=== PATIENT | female | born 1945 | race Caucasian/White ===

== ENCOUNTER 2024-04-17 14:00 | Outpatient (AMB) | payer MEDICARE, BC, SELFPAY ==
--- NOTE | 2024-04-17 14:34 | ORTHONT_ITS ---
Vital signs 04/17/24 14:44 Height 1.73 m Height Method Measured Weight 80.087 kg Weight Measurement Method Standing Scale BMI 26.8 BP 130/80 Blood Pressure Source Automatic Cuff Blood Pressure Location Right Upper Arm Position Sitting Respiration 18 Pulse 72 Pulse Source Monitor Temp 97.7 F Temp Source Temporal Artery Scan Pulse Oximetry (%) 97 Oxygen Delivery Method Room Air Med/Allergies Allergies & Medications Allergies No Known Drug Allergies Allergy (Verified 04/17/24 14:46) Medication Reconciliation amlodipine 5 mg-valsartan 160 mg-hydrochlorothiazide 12.5 mg tablet 1 tab PO QDAY 04/17/24 [History Confirmed 04/17/24] aspirin 81 mg tablet 81 mg PO QDAY 04/17/24 [History Confirmed 04/17/24] atorvastatin 10 mg tablet 10 mg PO QDAY 04/17/24 [History Confirmed 04/17/24] cetirizine 10 mg tablet (Zyrtec) 10 mg PO QDAY PRN 04/17/24 [History Confirmed 04/17/24] fluticasone propionate 50 mcg/actuation nasal spray,suspension (Flonase Allergy Relief) 1 spray intranasal QDAY 04/17/24 [History Confirmed 04/17/24] magnesium citrate 100 mg capsule 100 mg PO QDAY 04/17/24 [History Confirmed 04/17/24] multivitamin 1 tab PO QDAY 04/17/24 [History Confirmed 04/17/24] Exam Exam Patient is in no acute distress and is cooperative with the examination today. Breathing is nonlabored. In no respiratory distress. Bilateral extremities were evaluated and demonstrates sensation intact to light touch. Palpable pedal pulses are present. No significant edema is present. Bilateral hips were examined. The patient has no pain with log roll of the hips. Internal rotation to 30 degrees and external rotation to 30 degrees is painless. Negative FADIR. The left knee was examined. The left knee is in varus alignment. Range of motion from 0-115 degrees. Knee is stable to varus and valgus as well as AP translation with <5mm. Patient has a negative McMurrays. There is no pain with patellofemoral compression and no crepitus noted. The knee is tender to palpation medially. The right knee was also examined. The right knee is in varus alignment. Range of motion from 0-120 degrees. Knee is stable to varus and valgus as well as AP translation with <5mm. Patient has a negative McMurrays. There is no pain with patellofemoral compression and no crepitus noted. The knee is tender to palpation medially. Assessment and Plan Problem List (1) Degenerative arthritis of knee, bilateral: Status: Acute Plan: Patient is a pleasant 78-year-old female with bilateral knee pain and bilateral knee arthritis. She has failed conservative treatment with a multiple injectio ns, anti-inflammatories. At this point in time, she would like to consider getting her knees replaced. We will need to get new weightbearing x-rays as it been over a year. She is interested in proceeding forward depending on what the x-rays show Advanced Care Planning Discussion Advance care planning discussed with:: patient Office Procedures GNS Level of Care Nursing/Assessment Patient Status: Initial/New Patient Nursing Assessment/Reassesment: Medication Reconciliation, Update PMH in EMR and Vital Signs Coordination of Care: Complex Care and Chronic Disease 1-5, Education Complex Pt/Fam, Consent,records obtained, informed consent, Results/Orders obtained and Staff clarify orders New Patient Charge New Patient Point Assignment: 1094 New Patient Point Charge: REHABILITATION SERVICES COUNSELOR Level 3 (4168-1247) MA Intake Visit Data Collection New Patient or Established: New Patient (never been to [facility]) Reason for Visit:: BILATERAL KNEE PAIN Seen by Clinical Staff ONLY (RN/MA): No Verbal consent obtained for Telemed visit?: No Family Resource Specialist Required: No PCP or OBGYN visit in last 3 months: Yes Hx Now: No Do You Feel Safe at Home: Yes Authorities Contacted: N/A Questionairres Past Medical History Past Medical History Have you ever been diagnosed with any of the following: Respiratory Problems Smoking: No Smoking Cessation Counseling: No Smoking Exposure: No Subjective Visit Visit for: new patient, hip and knee Immunization / Flu Flu Vaccine in the Last 12 Months: Yes Flu Vaccine Exclusion Criteria: Already Received History of Present Illness Chief complaint: BILATERAL KNEE AND HIP PAIN Tangela is a pleasant 78-year-old female with bilateral knee pain worse on the left. This been ongoing for over 2 years. He has seen 2 other prior orthopedic surgeons where 1 recommended total knee replacement. The pain is affecting her quality life and happiness. She has had multiple injections in the past Personal History Occupation: RETIRED Red flag PMH: none BMI Counceling provided: Yes Pain Pain level (0-10): 5 Pain duration: COMES AND GOES Pain location: inside (medial), outside (lateral), anterior and posterior Pain quality: sharp, dull, aching and burning Pain timing: increases with activity Associated signs & symptoms: stiffness Ambulatory data Ambulatory device: none Treatments Number of previous injections: 2 Improvement with previous injections: Yes Improvement with PT: No Improvement with NSAIDS: no Review of Systems Review of Systems: All systems negative unless otherwise noted in HPI.
[2024-04-17 14:44] VITALS: BP 130/80; PULSE 72; RESP 18; TEMP 36.5; O2SAT 97; BMI 26.8
== END 2024-04-17 15:03 | disposition home or self-care (01) ==
PROVIDERS: Supervising Provider Orthopaedic Surgery Adult Reconstructive Orthopaedic Surgery; Visit Provider Orthopaedic Surgery Adult Reconstructive Orthopaedic Surgery
DX: M17.0 Bilateral primary osteoarthritis of knee (principal); M25.562 Pain in left knee; M25.561 Pain in right knee
CPT/HCPCS: 73564; 99203; G0463

== ENCOUNTER → 2024-04-17 | Outpatient (CLI) | payer MEDICARE, BC, SELFPAY ==
--- NOTE | 2024-04-17 15:40 | XR_ITS ---
Examination: Bilateral knees 2 views Right lateral knee left lateral knee 2 views Bilateral axial knees single view TECHNIQUE: Bilateral AP knees standing single view, bilateral PA knees standing single view 30 degrees flexion Staining right lateral knee left lateral knee 2 views Bilateral axial knees single view total 5 views Exam date and time: April 17, 2024 1554 hours INDICATIONS: Bilateral knee pain several years. FINDINGS: Significant osteopenia Advanced narrowing [id number] medial joint space left knee Significant osteoarthritis patellofemoral joints left knee Moderate narrowing medial joint space right knee Significant osteoarthritis patellofemoral joint right knee IMPRESSION: Advanced narrowing [id number] medial joint space left knee Significant osteoarthritis patellofemoral joints bilaterally
== END | disposition home or self-care (01) ==
PROVIDERS: PCP Family Medicine; Referring Provider Orthopaedic Surgery Adult Reconstructive Orthopaedic Surgery; Visit Provider Orthopaedic Surgery Adult Reconstructive Orthopaedic Surgery
DX: M17.0 Bilateral primary osteoarthritis of knee (principal); M25.862 Other specified joint disorders, left knee
CPT/HCPCS: 73564

== ENCOUNTER 2024-05-01 10:23 | Outpatient (AMB) | payer MEDICARE, BC, SELFPAY ==
--- NOTE | 2024-05-01 10:36 | PD.ORTHCLVIS ---
Vital signs 05/01/24 10:37 Height 1.73 m Height Method Stated Weight 80.995 kg Weight Measurement Method Standing Scale BMI 27.0 BP 149/75 H Blood Pressure Source Automatic Cuff Blood Pressure Location Left Upper Arm Position Sitting Respiration 18 Pulse 77 Pulse Source Monitor Temp 97.5 F Temp Source Temporal Artery Scan Pulse Oximetry (%) 97 Oxygen Delivery Method Room Air Med/Allergies Allergies & Medications Allergies No Known Drug Allergies Allergy (Verified 05/01/24 10:37) Medication Reconciliation amlodipine 5 mg-valsartan 160 mg-hydrochlorothiazide 12.5 mg tablet 1 tab PO QDAY 04/17/24 [History Confirmed 05/01/24] aspirin 81 mg tablet 81 mg PO QDAY 04/17/24 [History Confirmed 05/01/24] atorvastatin 10 mg tablet 10 mg PO QDAY 04/17/24 [History Confirmed 05/01/24] cetirizine 10 mg tablet (Zyrtec) 10 mg PO QDAY PRN 04/17/24 [History Confirmed 05/01/24] fluticasone propionate 50 mcg/actuation nasal spray,suspension (Flonase Allergy Relief) 1 spray intranasal QDAY 04/17/24 [History Confirmed 05/01/24] magnesium citrate 100 mg capsule 100 mg PO QDAY 04/17/24 [History Confirmed 05/01/24] multivitamin 1 tab PO QDAY 04/17/24 [History Confirmed 05/01/24] Exam Exam Patient is in no acute distress and is cooperative with the examination today. Breathing is nonlabored. In no respiratory distress. Bilateral extremities were evaluated and demonstrates sensation intact to light touch. Palpable pedal pulses are present. No significant edema is present. Bilateral hips were examined. The patient has no pain with log roll of the hips. Internal rotation to 30 degrees and external rotation to 30 degrees is painless. Negative FADIR. The left knee was examined. The left knee is in varus alignment. Range of motion from 0-115 degrees. Knee is stable to varus and valgus as well as AP translation with <5mm. Patient has a negative McMurrays. There is no pain with patellofemoral compression and no crepitus noted. The knee is tender to palpation medially. The right knee was also examined. The right knee is in varus alignment. Range of motion from 0-120 degrees. Knee is stable to varus and valgus as well as AP translation with <5mm. Patient has a negative McMurrays. There is no pain with patellofemoral compression and no crepitus noted. The knee is tender to palpation medially. Left knee x-rays from [facility] were reviewed by me. This demonstrates complete obliteration of the left knee internal space as well as osteophytes. The right knee demonstrates moderate arthritis Assessment and Plan Problem List (1) Degenerative arthritis of knee, bilateral: Status: Acute Plan: Patient is a pleasant 78-year-old female with bilateral knee pain and bilateral knee arthritis. She has failed conservative treatment with a multiple injections, anti-inflammatories. At this point in time, she would like to consider getting her knees replaced. X-rays demonstrate severe left knee arthritis and we thus consider total knee replacement as a reasonable option The nature and purpose of the total knee replacement, alternative method(s) of treatment, the material risks involved, and the possibility of complications were fully explained to the patient. The patient does NOT have any of the following contraindications to TKA: - Active infection of the knee joint, OR - Active systemic bacteremia, OR - Active skin infection or open wound at surgical site, OR - Neuropathic arthritis, OR - Severe, rapidly progressive neurological disease, OR - Severe medical condition that makes risks of surgery outweigh the potential benefit The patient was told the most common risks and complications associated with a total knee replacement include, but are not limited to: blood clots in the leg, fatal pulmonary embolism, dislocation of the prosthesis, intraoperative and postoperative fractures of the femur or tibia, infection, failure of the prosthesis or grafting materials, complications from anesthesia, reactions to blood transfusions, postoperative leg length inequality, instability of the knee replacement, nerve damage or injury, vascular injury, delayed wound healing, infection, other injury or even . In addition, there are risks associated with anesthesia given during this operation. Also, the patient was told that after undergoing a total knee replacement there may still be persistent pain or disability. The patient was informed that the success of this operation in part depends upon the mechanical devices which are going to be implanted and that these devices can fail or malfunction, and may need to be repaired or replaced and there are no guarantees as to the longevity of this device or its parts and that it or its parts could fail prematurely. The patient was also notified that during the course of surgery, there may be a need to use bone graft from donors, and that any bone graft used will be carefully screened for communicable diseases, including AIDS, hepatitis, Neptali-Creutzfeldt, or other diseases, but despite the screening procedures, there is a small chance that they could contract one of these diseases. Finally, the patient was asked to follow completely and fully with all advice and recommended treatments, and that recovery and ultimate outcome are affected by their compliance with recommended treatment. We discussed the risks, benefits and treatment alternatives, and the patient is interested in proceeding with surgery. We will try to set this up as expeditiously as possible. Advanced Care Planning Discussion Advance care planning discussed with:: patient Office Procedures GNS Level of Care Nursing/Assessment Patient Status: Established Patient Nursing Assessment/Reassesment: Medication Reconciliation, Update PMH in EMR and Vital Signs Coordination of Care: Complex Care and Chronic Disease 1-5, Education Complex Pt/Fam, Consent,records obtained, informed consent, Results/Orders obtained and Staff clarify orders Established Patient Charge Established Patient Point Assignment: 95 Established Patient Point Charge: EP Level 3 (80-115) MA Intake Visit Data Collection New Patient or Established: Established Patient (seen at [facility] within 3 years) Reason for Visit:: XRAY RESULTS Seen by Clinical Staff ONLY (RN/MA): No Manager Special Events Required: No PCP or OBGYN visit in last 3 months: Yes Hx Now: No Do You Feel Safe at Home: Yes Authorities Contacted: N/A Questionairres Past Medical History Past Medical History Have you ever been diagnosed with any of the following: Respiratory Problems Smoking: No Smoking Cessation Counseling: No Smoking Exposure: No Subjective Visit Visit for: follow up visit and x-rays (RESULTS) Immunization / Flu Flu Vaccine in the Last 12 Months: No Flu Vaccine Exclusion Criteria: No Exclusion Criteria History of Present Illness Chief complaint: BILATERAL KNEE AND HIP PAIN Tangela is a pleasant 78-year-old female with bilateral knee pain worse on the left. This been ongoing for over 2 years. He has seen 2 other prior orthopedic surgeons where 1 recommended total knee replacement. The pain is affecting her quality life and happiness. She has had multiple injections in the past. Personal History Occupation: RETIRED Red flag PMH: none BMI Counceling provided: Yes Pain Pain level (0-10): 3 Pain duration: CONSTANT Pain location: inside (medial) Pain quality: aching Pain timing: increases with activity Associated signs & symptoms: none Ambulatory data Ambulatory device: none Treatments Number of previous injections: 2 Improvement with previous injections: No Improvement with PT: No Improvement with NSAIDS: no Review of Systems Review of Systems: All systems negative unless otherwise noted in HPI.
[2024-05-01 10:37] VITALS: BP 149/75; PULSE 77; RESP 18; TEMP 36.4; O2SAT 97; BMI 27.0
== END 2024-05-01 10:49 | disposition home or self-care (01) ==
PROVIDERS: Supervising Provider Orthopaedic Surgery Adult Reconstructive Orthopaedic Surgery; Visit Provider Orthopaedic Surgery Adult Reconstructive Orthopaedic Surgery
DX: M17.0 Bilateral primary osteoarthritis of knee (principal); M25.562 Pain in left knee; M25.561 Pain in right knee
CPT/HCPCS: 99213; G0463

== ENCOUNTER 2024-05-29 13:00 | Outpatient (AMB) | payer MEDICARE, BC, SELFPAY ==
--- NOTE | 2024-05-29 13:18 | PD.ORTHCLVIS ---
Vital signs 05/29/24 13:19 Height 1.73 m Height Method Stated Weight 80.995 kg Weight Measurement Method Standing Scale BMI 27.0 BP 120/63 Blood Pressure Source Automatic Cuff Blood Pressure Location Left Upper Arm Position Sitting Respiration 18 Pulse 69 Pulse Source Monitor Temp 96.5 F L Temp Source Temporal Artery Scan Pulse Oximetry (%) 97 Oxygen Delivery Method Room Air Med/Allergies Allergies & Medications Allergies No Known Drug Allergies Allergy (Verified 05/29/24 13:19) Medication Reconciliation amlodipine 5 mg-valsartan 160 mg-hydrochlorothiazide 12.5 mg tablet 1 tab PO QDAY 04/17/24 [History Confirmed 05/29/24] aspirin 81 mg tablet 81 mg PO QDAY 04/17/24 [History Confirmed 05/29/24] atorvastatin 10 mg tablet 10 mg PO QDAY 04/17/24 [History Confirmed 05/29/24] cetirizine 10 mg tablet (Zyrtec) 10 mg PO QDAY PRN 04/17/24 [History Confirmed 05/29/24] fluticasone propionate 50 mcg/actuation nasal spray,suspension (Flonase Allergy Relief) 1 spray intranasal QDAY 04/17/24 [History Confirmed 05/29/24] magnesium citrate 100 mg capsule 100 mg PO QDAY 04/17/24 [History Confirmed 05/29/24] multivitamin 1 tab PO QDAY 04/17/24 [History Confirmed 05/29/24] Exam Exam Patient is in no acute distress and is cooperative with the examination today. Breathing is nonlabored. In no respiratory distress. Bilateral extremities were evaluated and demonstrates sensation intact to light touch. Palpable pedal pulses are present. No significant edema is present. Bilateral hips were examined. The patient has no pain with log roll of the hips. Internal rotation to 30 degrees and external rotation to 30 degrees is painless. Negative FADIR. The left knee was examined. The left knee is in varus alignment. Range of motion from 0-115 degrees. Knee is stable to varus and valgus as well as AP translation with <5mm. Patient has a negative McMurrays. There is no pain with patellofemoral compression and no crepitus noted. The knee is tender to palpation medially. The right knee was also examined. The right knee is in varus alignment. Range of motion from 0-120 degrees. Knee is stable to varus and valgus as well as AP translation with <5mm. Patient has a negative McMurrays. There is no pain with patellofemoral compression and no crepitus noted. The knee is tender to palpation medially. Left knee x-rays from [facility] were reviewed by me. This demonstrates complete obliteration of the left knee internal space as well as osteophytes. The right knee demonstrates moderate arthritis Assessment and Plan Problem List (1) Degenerative arthritis of knee, bilateral: Status: Acute Plan: Patient is a pleasant 78-year-old female with bilateral knee pain and bilateral knee arthritis. She has failed conservative treatment with a multiple injections, anti-inflammatories. At this point in time, she would like to consider getting her knees replaced. X-rays demonstrate severe left knee arthritis and we thus consider total knee replacement as a reasonable option The nature and purpose of the total knee replacement, alternative method(s) of treatment, the material risks involved, and the possibility of complications were fully explained to the patient. The patient does NOT have any of the following contraindications to TKA: - Active infection of the knee joint, OR - Active systemic bacteremia, OR - Active skin infection or open wound at surgical site, OR - Neuropathic arthritis, OR - Severe, rapidly progressive neurological disease, OR - Severe medical condition that makes risks of surgery outweigh the potential benefit The patient was told the most common risks and complications associated with a total knee replacement include, but are not limited to: blood clots in the leg, fatal pulmonary embolism, dislocation of the prosthesis, intraoperative and postoperative fractures of the femur or tibia, infection, failure of the prosthesis or grafting materials, complications from anesthesia, reactions to blood transfusions, postoperative leg length inequality, instability of the knee replacement, nerve damage or injury, vascular injury, delayed wound healing, infection, other injury or even . In addition, there are risks associated with anesthesia given during this operation. Also, the patient was told that after undergoing a total knee replacement there may still be persistent pain or disability. The patient was informed that the success of this operation in part depends upon the mechanical devices which are going to be implanted and that these devices can fail or malfunction, and may need to be repaired or replaced and there are no guarantees as to the longevity of this device or its parts and that it or its parts could fail prematurely. The patient was also notified that during the course of surgery, there may be a need to use bone graft from donors, and that any bone graft used will be carefully screened for communicable diseases, including AIDS, hepatitis, Neptali-Creutzfeldt, or other diseases, but despite the screening procedures, there is a small chance that they could contract one of these diseases. Finally, the patient was asked to follow completely and fully with all advice and recommended treatments, and that recovery and ultimate outcome are affected by their compliance with recommended treatment. We discussed the risks, benefits and treatment alternatives, and the patient is interested in proceeding with surgery. We will try to set this up as expeditiously as possible. Advanced Care Planning Discussion Advance care planning discussed with:: patient Office Procedures GNS Level of Care Nursing/Assessment Patient Status: Established Patient Nursing Assessment/Reassesment: Medication Reconciliation, Update PMH in EMR and Vital Signs Coordination of Care: Complex Care and Chronic Disease 1-5, Education Complex Pt/Fam, Consent,records obtained, informed consent and Staff clarify orders Established Patient Charge Established Patient Point Assignment: 90 Established Patient Point Charge: EP Level 3 (80-115) MA Intake Visit Data Collection New Patient or Established: Established Patient (seen at [facility] within 3 years) Reason for Visit:: PRE OP L TKA Seen by Clinical Staff ONLY (RN/MA): No Deputy Fire Chief Required: No PCP or OBGYN visit in last 3 months: Yes Hx Now: No Do You Feel Safe at Home: Yes Authorities Contacted: N/A Questionairres Past Medical History Past Medical History Have you ever been diagnosed with any of the following: Respiratory Problems Smoking: No Smoking Cessation Counseling: No Smoking Exposure: No Subjective Visit Visit for: follow up visit and knee Immunization / Flu Flu Vaccine in the Last 12 Months: No Flu Vaccine Exclusion Criteria: No Exclusion Criteria History of Present Illness Chief complaint: BILATERAL KNEE AND HIP PAIN Tangela is a pleasant 78-year-old female with bilateral knee pain worse on the left. This been ongoing for over 2 years. He has seen 2 other prior orthopedic surgeons where she was recommended total knee replacement. The pain is affecting her quality life and happiness. She has had multiple injections in the past. Personal History Occupation: RETIRED Red flag PMH: none BMI Counceling provided: Yes Pain Pain level (0-10): 3 Pain duration: CONSTANT Pain location: inside (medial) Pain quality: aching Pain timing: increases with activity Associated signs & symptoms: none Ambulatory data Ambulatory device: none Treatments Number of previous injections: 2 Improvement with previous injections: No Improvement with PT: No Improvement with NSAIDS: no Review of Systems Review of Systems: All systems negative unless otherwise noted in HPI.
[2024-05-29 13:19] VITALS: BP 120/63; PULSE 69; RESP 18; TEMP 35.8; O2SAT 97; BMI 27.0
== END 2024-05-29 13:43 | disposition home or self-care (01) ==
PROVIDERS: PCP Family Medicine; Referring Provider Family Medicine; Supervising Provider Orthopaedic Surgery Adult Reconstructive Orthopaedic Surgery; Visit Provider Orthopaedic Surgery Adult Reconstructive Orthopaedic Surgery
DX: M17.0 Bilateral primary osteoarthritis of knee (principal); M25.562 Pain in left knee; M25.561 Pain in right knee
CPT/HCPCS: 73700; 99213; G0463

== ENCOUNTER → 2024-05-29 | Outpatient (CLI) | payer MEDICARE, BC, SELFPAY ==
--- NOTE | 2024-05-29 14:30 | XR_ITS ---
Examination: CT left lower extremity, without contrast. 2-D sagittal reconstructions. 2-D coronal reconstructions. 3-D reconstructions. Date and time of exam:May 29, 2024 at 1444 hours INDICATIONS: Left knee pain beginning 2 years ago, diagnosis unilateral primary osteoarthritis left knee CTDI: vol (mGy):10.5 DLP: (mGycm):881 Technique: Multiple 1.25 mm axial sections of the left lower extremity without intravenous contrast have been obtained. 2-D sagittal and coronal reconstructions have been obtained. 3-D reconstructions have been obtained. Low dose protocols were performed. One or more of the following dose reduction techniques were used; automated exposure control, adjustment of the mA and/or KV according to patient size, use of iterative reconstruction technique. Findings: Severe osteopenia Mild left hip osteoarthritis No left hip fracture or dislocation No avascular necrosis Advanced narrowing [id number] medial joint space left knee Moderate to advanced osteoarthritis patellofemoral joint left knee No fracture IMPRESSION: Advanced narrowing, [id number], medial joint space left knee
== END | disposition home or self-care (01) ==
LOC: CCTX 14:33
PROVIDERS: PCP Family Medicine; Referring Provider Orthopaedic Surgery Adult Reconstructive Orthopaedic Surgery; Visit Provider Orthopaedic Surgery Adult Reconstructive Orthopaedic Surgery
DX: M25.862 Other specified joint disorders, left knee (principal)
CPT/HCPCS: 73700

== ENCOUNTER 2024-06-04 05:35 | Day surgery (SDC) | payer MEDICARE, BC, SELFPAY ==
[2024-05-31 08:32] VITALS: BMI 27.4
[2024-05-31 09:28] LABS: Basophils % (Auto) 1 % (0-2.5); Eosinophils # (Auto) 0.1 Thou/mm3 (0.0-0.5); Eosinophils % (Auto) 1 % (0-10); Hematocrit 40.4 % (36.0-46.0); Hemoglobin 14.1 g/dL (12.0-16.0); Immature Granulocytes % (Auto) 0 % (0-0); Immature Granulocytes Auto 0.01 Thou/mm3 (0.00-0.00); Lymphocytes # (Auto) 2.1 Thou/mm3 (1.0-4.8); Lymphocytes % (Auto) 33 % (10-50); Mean Corpuscular HGB Conc 34.9 g/dl (31.0-37.0); Mean Corpuscular Hemoglobin 30.9 pg (25.0-35.0); Mean Corpuscular Volume 89 fL (80-100); Monocytes # (Auto) 0.4 Thou/mm3 (0.0-0.8); Monocytes % (Auto) 7 % (0-12); Neutrophils # (Auto) 3.7 Thou/mm3 (1.8-7.7); Neutrophils % (Auto) 58 % (37-80); Nucleated Red Blood Cell % 0 /100 WBC (0); Platelet Count 244 Thou/mm3 (140-440); RDW Standard Deviation 42.8 fL (36.4-46.3); Red Blood Count 4.56 Miln/mm3 (4.00-5.20); White Blood Count 6.4 Thou/mm3 (3.6-11.0)
[2024-05-31 09:37] LABS: Partial Thromboplastin Time 24.8 Seconds (22.0-36.0); Prothrombin Time 10.5 Seconds (9.0-12.2)
[2024-05-31 09:39] LABS: Alanine Aminotransferase 20 U/L (10-49); Albumin, Serum 4.6 gm/dL (3.4-4.8); Albumin/Globulin Ratio 2.2 (1.2-2.2); Alkaline Phosphatase 67 U/L (46-116); Anion Gap 6 (7-16); Aspartate Amino Transferase 18 U/L (0-34); BUN/Creatinine Ratio 20 Ratio (12-20); Bilirubin,Total 0.7 mg/dL (0.3-1.2); Blood Urea Nitrogen 14 mg/dL (9-23); Calcium 11.3 mg/dL (8.3-10.6); Calcium (Corrected) 11.3 mg/dL (8.5-10.1); Carbon Dioxide 30.4 mMol/L (20.0-31.0); Chloride 105 mMol/L (98-107); Creatinine (Component) 0.7 mg/dL (0.6-1.3); Globulin 2.1 gm/dL (2.3-3.5); Glucose 105 mg/dL (74-106); Osmolality,Calculated 281 (275-295); Potassium 4.8 mMol/L (3.4-5.1); Sodium 141 mMol/L (136-145); Total Protein 6.7 gm/dL (5.7-8.2); eGFR > 60 See Note
--- NOTE | 2024-05-31 13:59 | SUR.PREOP ---
Cardiac records reviewed with Dr Anguiano.
[2024-06-04] VITALS (11 sets, daily range): BP systolic 111–134; BP diastolic 60–78; PULSE 58–95; RESP 12–20; TEMP 36.1–36.7; O2SAT 92–99; BMI 27.0; BMI 15.0
[2024-06-04] MEDS: ACETAMINOPHEN 325 MG TABLET 650 MG PO (06:27)
[2024-06-04] MEDS: MELOXICAM 7.5 MG TABLET PO (06:27)
[2024-06-04] MEDS: PREGABALIN 75 MG CAPSULE PO (06:27)
[2024-06-04] MEDS: RINGERS LACTATED 1000 ML 1,000 ML 20 ML IV (06:28)
--- NOTE | 2024-06-04 07:40 | CHAP ---
Patient expressed gratitude for prayer before their procedure.
--- NOTE | 2024-06-04 09:24 | XR_ITS ---
Examination: Left knee 2 views Technique one AP lateral left knee 2 views Exam date and time: June 04, 2024 1001 hrs. Indications: Knee replacement today Findings: Total left knee arthroplasty. Satisfactory alignment No fracture Impression: Total left knee arthroplasty with satisfactory alignment
--- NOTE | 2024-06-04 09:28 | ESOP_ITS ---
Date of Procedure 06/04/24 Pre Op Diagnosis left knee osteoarthritis Post Op Diagnosis left knee osteoarthritis Procedure left total knee replacement laura Findings full thickness cartilage loss and osteophytes Procedure Description Indication: The patient is a 79 year old who has a long history of left knee pain. X-rays show degenerative arthritis involving the knee. Over the past several years the patient has had increasing pain, progressive limitation in function. He has failed conservative measures including activity modification, physical therapy, injections, anti-inflammatories, and assistive devices. After a lengthy discussion of the risks and benefits, the patient presents now for total knee replacement. The nature and purpose of the total knee replacement, alternative method(s) of treatment, the material risks involved, and the possibility of complications were fully explained to the patient. The patient was told the most common risks and complications associated with a total knee replacement include, but are not limited to blood clots in the leg, fatal pulmonary embolism, dislocation of the prosthesis, intraoperative and postoperative fractures of the femur or tibia, infection, failure of the prosthesis or grafting materials, complications from anesthesia, reactions to blood transfusions, postoperative leg length inequality, instability of the knee replacement, nerve damage or injury, vascular injury, delayed wound healing, infections, other injury or even . In addition, there are risks associated with anesthesia given during this operation, temporary or permanent numbness on the skin lateral to the incision can be a complication unique to total knee surgery, and kneeling can be painful after knee replacement surgery. Also, the patient was told that after undergoing a total knee replacement there may still be pain or disability. We discussed with the patient that we will be using a robot-assisted technology. We discussed that there is a possibility of converting to manual instrumentation. The patient was informed that the success of this operation in part depends upon the mechanical devices which are going to be implanted and that these devices can fail or malfunction, and may need to be repaired or replaced and there are no guarantees as to the longevity of this device or its part and that it or its parts could fail prematurely. Finally, the patient was asked to follow completely and fully with all advice and recommended treatments, and that recovery and ultimate outcome are affected by their compliance with recommended treatment. Surgical technique: Patient was marked and consented in the pre-operative area. The patient was brought to the operating room and placed on the operating table in a supine position. Prior to positioning, a timeout procedure was performed between the surgeon, the anesthesiologist, and the nursing staff where the patient and the operative side were identified and confirmed. After adequate general anesthetic was obtained, the left lower extremity was prepped and draped in the usual sterile fashion. A weight based dose of Cefazolin were administered within 1 hour prior to incision. The robot was preregistered and calirated before the incision. The extremity was exsanguinated with an esmarch badge and tourniquet inflated to 250mmHg. A midline incision was made. A median parapatellar arthrotomy was made. The patella was subluxed laterally. A medial release was performed to expose the medial tibia. His femoral and tibial pins were placed through an intra incisional manner for both cases. Every effort was made to ensure that the distalmost aspect of the pin was hung in the second cortex. The arrays were then tightened several times to ensure that it was fixed for the remainder of the case. Both femoral and tibial checkpoints were then placed. We then went through the registration process of the bone. We then assessed the knee deformity and attempted to correct it. We also used the robot to aid in judging laxity in both extension and flexion. Final based on laxity and alignment we changed the preoperative assessment to obtain proper proper implant positioning and to correct deformity. Attention was then placed to the tibia. We made a tibial cut using the robot ensuring that both the MCL and the patella tendon were protected with retractors. We then went to the femur and made the posterior cut followed by the anterior cut and the anterior chamfer. The bone was then removed and we made a distal femur cut and a posterior chamfer cut. We verified all cuts. A trial reduction was performed with a size 5 femoral component and a size 4 keeled tibial component. The patella tracked centrally, and no lateral retinacular release was necessary. The trial implants were removed. The arrays, pins, and checkpoints were all removed. We performed a verification that all pins were removed. The cut bone surfaces were lavaged. A size 5 left femoral component, a size 4 keeled tibial component were impacted into position using 2 bags of palacos. A The knee was left in extension until the cement hardened. The knee was felt to be well balanced in the sagittal and coronal plane. The final 4x10] mm cruciate- substituting articular insert was impacted into the tibial tray. The knee was brought out to full extension, flexed up to 120 degrees. It was stable to varus and valgus stress and appropriately balanced in flexion and extension. The wounds were copiously irrigated following deflation of tourniquet. The medial retinaculum was reapproximated with #1 vicryl and quill. The subcutaneous tissues were closed with 0 and 2-0 interrupted Vicryl. The skin was closed with 3-0 Monofilament V loc suture. A sterile dressing was applied. The patient was transferred to a bed and brought to recovery in stable condition. The patient tolerated the procedure well. There were no intraoperative complications. Sponge and needle counts were correct times 2. As the attending surgeon, I attest I was present and performed the entire operation. Grafts/Implants Size 5 CR Femur Size 4 Tibia 10]mm poly CS 2 bags of palacos Implants md 5 femur, 4 tibia, 10 poly Pathology / specimen None Pathology comment: none Estimated Blood Loss 150 Surgeon Oscar Chavez MD Surgical Staff Operation Date: 06/04/24 07:30 Case Staff Anesthesiologist: Clayton Anguiano RNadministration internship: Esme Freeman
--- NOTE | 2024-06-04 09:45 | SUR.PHASEI ---
0945: Pt. wakes to name then drifts back to sleep, vitals stable, breathing unlabored, no complaint of pain or nausea, dressing to left leg CDI, no active bleed noted, bilateral dorsalis pedis pulses strong and regular, cap refill to bilateral feet less than 3 seconds, report received from Orion PACHECO and MD Anguiano.
--- NOTE | 2024-06-04 12:00 | SUR.PHASEII ---
1200: Gave report to Patricia Espitia RN to resume care. Pt. sitting in wheelchair waiting for her ride, pt. meets discharge criteria. Pt. provided with refreshments as she waits, no complaints of pain or nausea.
--- NOTE | 2024-06-04 12:34 | SUR.PHASEII ---
1234: Received report from Patricia Espitia RN, discharge instructions given, IV needs to be removed and then she can go home. No complaint of pain or nausea, dressing to left knee CDI.
--- NOTE | 2024-06-04 12:35 | SUR.PHASEII ---
1235: Pt. AAOX4, vitals stable, breathing unlabored, no complaint of pain or nausea, dressing to left knee CDI, no active bleed noted, pt. tolerated sips of water well, bilateral dorsalis pedis pulses strong and regular, cap refill to bilateral feet less than 3 seconds, pt. tolerated physical therapy well, discharge instructions given to the pt. and her ride, both verbalized understanding and had no further questions. Pt. left with all personal belongings.
--- NOTE | 2024-06-07 12:02 | PD.ANESPROG ---
Documentation for date of: 06/07/24 POST ANESTHESIA NOTE: Patient had GETA with L adductor canal block on 06/04/24. I just called and spoke with her on the phone and she denied any problems from anesthesia but reported feeling slight numbness on the inside part of her L knee almost all the way down to her L ankle. She denied any difficulty walking and reported she has been walking with and without walker and she endorsed she can move her L foot without problem. I educated her that her numbness could be from surgical factor or could be from the nerve block (the risk of which I had discussed with her during pre-op informed consent), and I educated her that her numbness may resolve over time over 2-3 months as nerves regenerate. She understood and had no further questions for me and was thankful. Clayton Anguiano MD Anesthesia Progress Note Progress Note Most recent Vital Signs: Last Vital Signs Temp 97.2 F 06/04/24 12:00 Pulse 76 06/04/24 12:00 Resp 17 06/04/24 12:00 BP 115/64 06/04/24 12:00 Pulse Ox 98 06/04/24 12:00 O2 Flow Rate 2 06/04/24 11:00
== END 2024-06-04 12:35 | disposition home or self-care (01) ==
PROVIDERS: Anesthesiology; PCP Family Medicine; Referring Provider Orthopaedic Surgery Adult Reconstructive Orthopaedic Surgery; Visit Provider Orthopaedic Surgery Adult Reconstructive Orthopaedic Surgery
PROC: (CPT 27447; principal; 2024-06-04 07:30)
DX: M17.12 Unilateral primary osteoarthritis, left knee (principal); M25.762 Osteophyte, left knee
CPT/HCPCS: 27447; 20985; 36415; 73560; 80053; 85025; 85610; 85730; 97162; A4217; C1713; C1776; J0690; J1100; J2250; J2371; J2405; J2704; J2710; J2795; J3010; J3490; J7030; J7120; J7999; A4648; A4649; A9270; J1596; J1805

== ENCOUNTER 2024-06-19 08:07 | Outpatient (AMB) | payer MEDICARE, BC, SELFPAY ==
[2024-06-19 08:15] VITALS: BP 123/75; PULSE 91; RESP 18; TEMP 36.1; O2SAT 98; BMI 26.9
--- NOTE | 2024-06-19 08:15 | PD.ORTHCLVIS ---
Vital signs 06/19/24 08:15 Height 1.73 m Height Method Stated Weight 80.399 kg Weight Measurement Method Standing Scale BMI 26.9 BP 123/75 Blood Pressure Source Automatic Cuff Blood Pressure Location Right Upper Arm Position Sitting Respiration 18 Pulse 91 Pulse Source Monitor Temp 96.9 F Temp Source Temporal Artery Scan Pulse Oximetry (%) 98 Oxygen Delivery Method Room Air Med/Allergies Allergies & Medications Allergies No Known Drug Allergies Allergy (Verified 06/19/24 08:16) Medication Reconciliation atorvastatin 10 mg tablet 10 mg PO QDAY 04/17/24 [History Confirmed 06/19/24] cetirizine 10 mg tablet (Zyrtec) 10 mg PO QDAY 04/17/24 [History Confirmed 06/19/24] fluticasone propionate 50 mcg/actuation nasal spray,suspension (Flonase Allergy Relief) 1 spray intranasal QDAY 04/17/24 [History Confirmed 06/19/24] multivitamin 1 tab PO QDAY 04/17/24 [History Confirmed 06/19/24] azelastine 137 mcg (0.1 %) nasal spray 1 spray intranasal Q12H 05/31/24 [History Confirmed 06/19/24] magnesium citrate 125 mg capsule 250 mg PO QDAY 05/31/24 [History Confirmed 06/19/24] montelukast 10 mg tablet 10 mg PO HS 05/31/24 [History Confirmed 06/19/24] valsartan 160 mg-hydrochlorothiazide 12.5 mg tablet 1 tab PO DAILY 05/31/24 [History Confirmed 06/19/24] acetaminophen 500 mg tablet (Acetaminophen Extra Strength) 1,000 mg (2 x 500 mg) PO Q6H PRN pain #90 tabs 06/04/24 [Rx Confirmed 06/19/24] aspirin 81 mg tablet,delayed release 81 mg PO BID #60 tabs 06/04/24 [Rx Confirmed 06/19/24] doxycycline hyclate 100 mg tablet 100 mg PO BID #14 tabs 06/04/24 [Rx Confirmed 06/19/24] gabapentin 300 mg capsule 300 mg PO .qhs #30 caps 06/04/24 [Rx Confirmed 06/19/24] sennosides 8.6 mg-docusate sodium 50 mg tablet (Senna-S) 1 tab-cap PO QDAY #30 tabs 06/04/24 [Rx Confirmed 06/19/24] oxycodone 5 mg tablet 5 mg PO Q6H PRN pain #28 tabs 06/11/24 [Rx Confirmed 06/19/24] oxycodone 5 mg tablet 5 mg PO Q6H PRN pain #28 tabs 06/19/24 [Rx] Exam Exam Patient is in no acute distress and is cooperative with the examination today. Breathing is nonlabored. In no respiratory distress. Bilateral extremities were evaluated and demonstrates sensation intact to light touch. Palpable pedal pulses are present. No significant edema is present. Bilateral hips were examined. The patient has no pain with log roll of the hips. Internal rotation to 30 degrees and external rotation to 30 degrees is painless. Negative FADIR. Left knee incision is clean dry intact Assessment and Plan Problem List (1) Degenerative arthritis of knee, bilateral: Status: Acute Plan: Patient is a pleasant 78-year-old female with bilateral knee pain and bilateral knee arthritis. She is doing well status post left total knee replacement. She has minimal pain. We will see her in 4 weeks with x-rays for follow-up Advanced Care Planning Discussion Advance care planning discussed with:: patient Office Procedures GNS Level of Care Nursing/Assessment Patient Status: Established Patient Nursing Assessment/Reassesment: Medication Reconciliation, Update PMH in EMR and Vital Signs Coordination of Care: Complex Care and Chronic Disease 1-5, Education Complex Pt/Fam, Consent,records obtained, informed consent, Results/Orders obtained and Staff clarify orders Established Patient Charge Established Patient Point Assignment: 95 Established Patient Point Charge: EP Level 3 (80-115) MA Intake Visit Data Collection New Patient or Established: Established Patient (seen at 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 PCP or OBGYN visit in last 3 months: Yes Hx Now: No Do You Feel Safe at Home: Yes Authorities Contacted: N/A Questionairres Past Medical History Past Medical History Have you ever been diagnosed with any of the following: Neurological Problems Seizures: No Migraine: Yes ([id number]) Cardiology Problems Hypercholesterolemia: Yes Congestive Heart Failure: No Edema: Yes (at the end of day mild feet) Hypertension: Yes Varicose Veins: Yes Respiratory Problems Chronic Obstructive Pulmonary Disease (COPD): No Bronchitis: Yes Smoking: No Smoking Cessation Counseling: No Smoking Exposure: No Stomache/Intestinal Problems Hepatitis: No Genital/Urinary Problems Renal Disease: No Reproductive Problems Previous Pregnancies: Yes Musculoskeletal Problems Arthritis: Yes Head,Eye,Nose,Throat Problems Cataracts: Yes Endocrine Problems Diabetes Mellitus Type 1: No Diabetes Mellitus Type 2: No Psychologic Problems Anxiety: Yes Other Problems Hospitalization: Yes (surgery) Shingles: No Blood Transfusions: No Blood Transfusion Reaction: No Anesthesia Reactions: No Chicken Pox: Yes Measles: Yes Mumps: Yes Cancer: No Surgical History Hysterectomy: Yes Subjective Visit Visit for: follow up visit, post op #1 and knee Immunization / Flu Flu Vaccine in the Last 12 Months: No Flu Vaccine Exclusion Criteria: No Exclusion Criteria History of Present Illness Chief complaint: 2 WK POST OP LT TKA Tangela is a pleasant 78-year-old female with bilateral knee pain worse on the left. She is doing well status post left total knee replacement. She has minimal pain. She is using No assistive device at this time Personal History Occupation: RETIRED Red flag PMH: none BMI Counceling provided: Yes Pain Pain level (0-10): 4 Pain duration: COMES AND GOES Pain location: outside (lateral) and anterior Pain quality: sharp and electric Pain timing: increases with activity Associated signs & symptoms: none Ambulatory data Ambulatory device: none Treatments Number of previous injections: 2 Improvement with previous injections: No Improvement with PT: No Improvement with NSAIDS: no Review of Systems Review of Systems: All systems negative unless otherwise noted in HPI.
== END 2024-06-19 08:31 | disposition home or self-care (01) ==
PROVIDERS: Supervising Provider Orthopaedic Surgery Adult Reconstructive Orthopaedic Surgery; Visit Provider Orthopaedic Surgery Adult Reconstructive Orthopaedic Surgery
DX: M17.0 Bilateral primary osteoarthritis of knee (principal); E78.00 Pure hypercholesterolemia, unspecified; I10 Essential (primary) hypertension; Z96.652 Presence of left artificial knee joint
CPT/HCPCS: 99213; G0463

== ENCOUNTER → 2024-07-12 | Outpatient (CLI) | payer MEDICARE, BC, SELFPAY ==
--- NOTE | 2024-07-12 13:50 | XR_ITS ---
Examination: Bilateral knees single view Standing PA knee flexion, left, standing left lateral knee, left axial knee TECHNIQUE: Bilateral AP knees standing single view Upright PA knee, left lateral knee, axial left knee 3 views total 4 views Exam date and time: July 12, 2024 1353 hours INDICATIONS: Status post knee replacement May 2024 with persistent knee pain. FINDINGS: Moderate osteopenia Mild to moderate narrowing medial joint space right knee Total left knee arthroplasty. Satisfactory alignment. No fracture. No loosening of the prosthetic components IMPRESSION: Total left knee arthroplasty with satisfactory alignment
== END | disposition home or self-care (01) ==
LOC: CDIM 13:30
PROVIDERS: PCP Family Medicine; Referring Provider Orthopaedic Surgery Adult Reconstructive Orthopaedic Surgery; Visit Provider Orthopaedic Surgery Adult Reconstructive Orthopaedic Surgery
DX: M25.562 Pain in left knee (principal); Z96.652 Presence of left artificial knee joint
CPT/HCPCS: 73564

== ENCOUNTER 2024-07-17 08:26 | Outpatient (AMB) | payer MEDICARE, BC, SELFPAY ==
[2024-07-17 08:34] VITALS: BP 129/74; PULSE 76; RESP 18; TEMP 36.2; O2SAT 99; BMI 26.5
--- NOTE | 2024-07-17 08:34 | PD.ORTHCLVIS ---
Vital signs 07/17/24 08:34 Height 1.73 m Height Method Stated Weight 79.435 kg Weight Measurement Method Standing Scale BMI 26.5 BP 129/74 Blood Pressure Source Automatic Cuff Blood Pressure Location Right Upper Arm Position Sitting Respiration 18 Pulse 76 Pulse Source Monitor Temp 97.2 F Temp Source Temporal Artery Scan Pulse Oximetry (%) 99 Oxygen Delivery Method Room Air Med/Allergies Allergies & Medications Allergies No Known Drug Allergies Allergy (Verified 07/17/24 08:35) Medication Reconciliation atorvastatin 10 mg tablet 10 mg PO QDAY 04/17/24 [History Confirmed 07/17/24] cetirizine 10 mg tablet (Zyrtec) 10 mg PO QDAY 04/17/24 [History Confirmed 07/17/24] fluticasone propionate 50 mcg/actuation nasal spray,suspension (Flonase Allergy Relief) 1 spray intranasal QDAY 04/17/24 [History Confirmed 07/17/24] multivitamin 1 tab PO QDAY 04/17/24 [History Confirmed 07/17/24] azelastine 137 mcg (0.1 %) nasal spray 1 spray intranasal Q12H 05/31/24 [History Confirmed 07/17/24] magnesium citrate 125 mg capsule 250 mg PO QDAY 05/31/24 [History Confirmed 07/17/24] montelukast 10 mg tablet 10 mg PO HS 05/31/24 [History Confirmed 07/17/24] valsartan 160 mg-hydrochlorothiazide 12.5 mg tablet 1 tab PO DAILY 05/31/24 [History Confirmed 07/17/24] aspirin 81 mg tablet,delayed release 81 mg PO BID #60 tabs 06/04/24 [Rx Confirmed 07/17/24] Exam Exam Patient is in no acute distress and is cooperative with the examination today. Breathing is nonlabored. In no respiratory distress. Bilateral extremities were evaluated and demonstrates sensation intact to light touch. Palpable pedal pulses are present. No significant edema is present. Bilateral hips were examined. The patient has no pain with log roll of the hips. Internal rotation to 30 degrees and external rotation to 30 degrees is painless. Negative FADIR. Left knee incision is clean dry intact. ROM is 0-120 degrees Assessment and Plan Problem List (1) Degenerative arthritis of knee, bilateral: Status: Acute Plan: Patient is a pleasant 78-year-old female with bilateral knee pain and bilateral knee arthritis. She is doing well status post left total knee replacement. She has minimal pain. We will see her in 2 months. Her immediate postoperative films look good Advanced Care Planning Discussion Advance care planning discussed with:: patient Office Procedures GNS Level of Care Nursing/Assessment Patient Status: Established Patient Nursing Assessment/Reassesment: Medication Reconciliation, Update PMH in EMR and Vital Signs Coordination of Care: Complex Care/Chronic Disease 5 or more, Education Complex Pt/Fam, Consent,records obtained, informed consent, Results/Orders obtained and Staff clarify orders Established Patient Charge Established Patient Point Assignment: 105 Established Patient Point Charge: EP Level 3 (80-115) PA Intake Visit Data Collection New Patient or Established: Established Patient (seen at [facility] within 3 years) Reason for Visit:: 6 WEEK POST OP LEFT TKA [employer]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 Do You Feel Safe at Home: Yes Questionairres Past Medical History Past Medical History Have you ever been diagnosed with any of the following: Neurological Problems Seizures: No Migraine: Yes ([id number]) Cardiology Problems Hypercholesterolemia: Yes Congestive Heart Failure: No Edema: Yes (at the end of day mild feet) Hypertension: Yes Varicose Veins: Yes Respiratory Problems Chronic Obstructive Pulmonary Disease (COPD): No Bronchitis: Yes Smoking: No Smoking Cessation Counseling: No Smoking Exposure: No Stomache/Intestinal Problems Hepatitis: No Genital/Urinary Problems Renal Disease: No Reproductive Problems Previous Pregnancies: Yes Musculoskeletal Problems Arthritis: Yes Head,Eye,Nose,Throat Problems Cataracts: Yes Endocrine Problems Diabetes Mellitus Type 1: No Diabetes Mellitus Type 2: No Psychologic Problems Anxiety: Yes Other Problems Hospitalization: Yes (surgery) Shingles: No Blood Transfusions: No Blood Transfusion Reaction: No Anesthesia Reactions: No Chicken Pox: Yes Measles: Yes Mumps: Yes Cancer: No Surgical History Hysterectomy: Yes Subjective Visit Visit for: post op #3, knee and x-rays Immunization / Flu Flu Vaccine in the Last 12 Months: Yes Flu Vaccine Exclusion Criteria: Already Received History of Present Illness Chief complaint: 6 WEEK POST OP LEFT TKA Tangela is a pleasant 78-year-old female with bilateral knee pain worse on the left. She is doing well status post left total knee replacement. She has minimal pain. She is using No assistive device at this time Personal History Occupation: RETIRED Red flag PMH: none BMI Counceling provided: Yes Pain Pain level (0-10): 0 Pain duration: COMES AND GOES Pain location: outside (lateral) and anterior Pain quality: sharp and electric Pain timing: increases with activity Associated signs & symptoms: numbness Ambulatory data Ambulatory device: none Treatments Number of previous injections: 2 Improvement with previous injections: No Improvement with PT: No Improvement with NSAIDS: no Review of Systems Review of Systems: All systems negative unless otherwise noted in HPI.
== END 2024-07-17 08:46 | disposition home or self-care (01) ==
LOC: HODSRG 08:26
PROVIDERS: PCP Family Medicine; Referring Provider Family Medicine; Supervising Provider Orthopaedic Surgery Adult Reconstructive Orthopaedic Surgery; Visit Provider Orthopaedic Surgery Adult Reconstructive Orthopaedic Surgery
DX: M17.0 Bilateral primary osteoarthritis of knee (principal); M25.562 Pain in left knee; M25.561 Pain in right knee; Z96.652 Presence of left artificial knee joint; I10 Essential (primary) hypertension; E78.00 Pure hypercholesterolemia, unspecified
CPT/HCPCS: 99213; G0463

== ENCOUNTER 2024-10-16 07:56 | Outpatient (AMB) | payer MEDICARE, BC, SELFPAY ==
--- NOTE | 2024-10-16 08:00 | ORTHONT_ITS ---
Vital signs 10/16/24 08:06 Height 1.73 m Height Method Stated Weight 82.214 kg Weight Measurement Method Standing Scale BMI 27.4 BP 117/72 Blood Pressure Source Automatic Cuff Blood Pressure Location Left Upper Arm Position Sitting Respiration 18 Pulse 72 Pulse Source Monitor Temp 96.9 F Temp Source Temporal Artery Scan Pulse Oximetry (%) 97 Oxygen Delivery Method Room Air Med/Allergies Allergies & Medications Allergies No Known Drug Allergies Allergy (Verified 10/16/24 08:07) Medication Reconciliation atorvastatin 10 mg tablet 10 mg PO QDAY 04/17/24 [History Confirmed 10/16/24] cetirizine 10 mg tablet (Zyrtec) 10 mg PO QDAY 04/17/24 [History Confirmed 10/16/24] fluticasone propionate 50 mcg/actuation nasal spray,suspension (Flonase Allergy Relief) 1 spray intranasal QDAY 04/17/24 [History Confirmed 10/16/24] multivitamin 1 tab PO QDAY 04/17/24 [History Confirmed 10/16/24] azelastine 137 mcg (0.1 %) nasal spray 1 spray intranasal Q12H 05/31/24 [History Confirmed 10/16/24] magnesium citrate 125 mg capsule 250 mg PO QDAY 05/31/24 [History Confirmed 10/16/24] montelukast 10 mg tablet 10 mg PO HS 05/31/24 [History Confirmed 10/16/24] valsartan 160 mg-hydrochlorothiazide 12.5 mg tablet 1 tab PO DAILY 05/31/24 [History Confirmed 10/16/24] aspirin 81 mg tablet,delayed release 81 mg PO BID #60 tabs 06/04/24 [Rx Confirmed 10/16/24] Exam Exam Patient is in no acute distress and is cooperative with the examination today. Breathing is nonlabored. In no respiratory distress. Bilateral extremities were evaluated and demonstrates sensation intact to light touch. Palpable pedal pulses are present. No significant edema is present. Bilateral hips were examined. The patient has no pain with log roll of the hips. Internal rotation to 30 degrees and external rotation to 30 degrees is painless. Negative FADIR. Left knee incision is clean dry intact. ROM is 0-120 degrees Assessment and Plan Problem List (1) Degenerative arthritis of knee, bilateral: Status: Acute Plan: Patient is a pleasant 78-year-old female with bilateral knee pain and bilateral knee arthritis. She is doing well status post left total knee replacement. She has minimal pain. We will see her in 6 months. Advanced Care Planning Discussion Advance care planning discussed with:: patient Office Procedures GNS Level of Care Nursing/Assessment Patient Status: Established Patient Nursing Assessment/Reassesment: Medication Reconciliation, Update PMH in EMR and Vital Signs Coordination of Care: Complex Care and Chronic Disease 1-5, Education Complex Pt/Fam, Consent,records obtained, informed consent, Lab and Imaging orders, Results/Orders obtained and Staff clarify orders Established Patient Charge Established Patient Point Assignment: 110 Established Patient Point Charge: EP Level 3 (80-115) MA Intake Visit Data Collection New Patient or Established: Established Patient (seen at [facility] within 3 years) Reason for Visit:: 3 MONTH TKA Seen by Clinical Staff ONLY (RN/MA): No PCP or OBGYN visit in last 3 months: Yes Hx Now: No Do You Feel Safe at Home: Yes Authorities Contacted: N/A Questionairres Past Medical History Past Medical History Have you ever been diagnosed with any of the following: Neurological Problems Seizures: No Migraine: Yes ([id number]) Cardiology Problems Hypercholesterolemia: Yes Congestive Heart Failure: No Edema: Yes (at the end of day mild feet) Hypertension: Yes Varicose Veins: Yes Respiratory Problems Chronic Obstructive Pulmonary Disease (COPD): No Bronchitis: Yes Smoking: No Smoking Cessation Counseling: No Smoking Exposure: No Stomache/Intestinal Problems Hepatitis: No Genital/Urinary Problems Renal Disease: No Reproductive Problems Previous Pregnancies: Yes Musculoskeletal Problems Arthritis: Yes Head,Eye,Nose,Throat Problems Cataracts: Yes Endocrine Problems Diabetes Mellitus Type 1: No Diabetes Mellitus Type 2: No Psychologic Problems Anxiety: Yes Other Problems Hospitalization: Yes (surgery) Shingles: No Blood Transfusions: No Blood Transfusion Reaction: No Anesthesia Reactions: No Chicken Pox: Yes Measles: Yes Mumps: Yes Cancer: No Surgical History Hysterectomy: Yes Subjective Visit Visit for: follow up visit, post op #3 and knee Immunization / Flu Flu Vaccine in the Last 12 Months: No Flu Vaccine Exclusion Criteria: No Exclusion Criteria History of Present Illness Chief complaint: 6 WEEK POST OP LEFT TKA Tangela is a pleasant 78-year-old female with bilateral knee pain worse on the left. She is doing well status post left total knee replacement. She has minimal pain. She is using No assistive device at this time Personal History Occupation: RETIRED Red flag PMH: none BMI Counceling provided: Yes Pain Pain level (0-10): 0 Pain duration: COMES AND GOES Pain location: outside (lateral) and anterior Pain quality: sharp and electric Pain timing: increases with activity Associated signs & symptoms: numbness Ambulatory data Ambulatory device: none Treatments Number of previous injections: 2 Improvement with previous injections: No Improvement with PT: No Improvement with NSAIDS: no Review of Systems Review of Systems: All systems negative unless otherwise noted in HPI.
[2024-10-16 08:06] VITALS: BP 117/72; PULSE 72; RESP 18; TEMP 36.1; O2SAT 97; BMI 27.4
== END 2024-10-16 08:16 | disposition home or self-care (01) ==
LOC: HODSRG 07:56
PROVIDERS: PCP Family Medicine; Referring Provider Family Medicine; Supervising Provider Orthopaedic Surgery Adult Reconstructive Orthopaedic Surgery; Visit Provider Orthopaedic Surgery Adult Reconstructive Orthopaedic Surgery
DX: M17.0 Bilateral primary osteoarthritis of knee (principal); M25.562 Pain in left knee; M25.561 Pain in right knee; Z96.652 Presence of left artificial knee joint; I10 Essential (primary) hypertension; E78.00 Pure hypercholesterolemia, unspecified
CPT/HCPCS: 99213; G0463